=== PATIENT | male | born 1995 | race Two or more races ===

== ENCOUNTER 2020-06-28 15:05 | Emergency (ER) | payer BC ==
[~2020-06-28] VITALS: Ht 177.8 cm; Wt 109.0 kg
[2020-06-28] MEDS ORDERED: ORPHENADRINE CITRATE 60 MG/2 ML VIAL. IM ONE (15:30)
[2020-06-28] MEDS ORDERED: DEXAMETHASONE 4 MG TABLET PO ONE (15:30)
[2020-06-28] MEDS ORDERED: KETOROLAC 30 MG/ML VIAL. IM ONE (15:30)
--- NOTE | 2020-06-28 15:44 | PHYS DOC ---
Adult General Chief Complaint Chief Complaint: BACK PAIN OR INJURY HPI HPI Patient is a 25-year-old male who presents to the emergency department with complaints of feeling a pop in his right low back, upper gluteal area after performing a squat earlier this morning.. Patient states he was rising from the squatted position when he felt the pain. He denies any saddle anesthesia, loss of bowel/bladder control, or radiation of the pain into his lower extremities. Patient denies any numbness, tingling, or weakness of his extremities. He reports the pain increases with movement of his right leg. The pain becomes so unbearable that he is unable to stand. He currently rates his pain a 10 out of 10 on the pain scale he denies any alleviating factors, the pain is worse with movement and weightbearing. He denies radiation. (LUIS MANUEL CHUNG APRN) Review of Systems Review of Systems Constitutional: Denies fever or chills [] Respiratory: Denies cough or shortness of breath [] GI: Denies abdominal pain : Denies dysuria, hematuria, or incontinence Musculoskeletal: See HPI Integument: Denies rash or skin lesions [] Neurologic: Denies headache, focal weakness or sensory changes [] Complete systems were reviewed and found to be within normal limits, except as documented in this note. (LUIS MANUEL CHUNG APRN) Allergies Allergies Allergies Coded Allergies Type Severity Reaction Last Updated Verified amoxicillin Allergy Unknown 06/28/20 Yes (LUIS MANUEL CHUNG APRN) Physical Exam Physical Exam Constitutional: Well developed, well nourished, no acute distress, non-toxic appearance. [] HENT: Normocephalic, atraumatic, bilateral external ears normal, nose normal. [] Eyes: PERRLA, EOMI, conjunctiva normal, no discharge. [] Neck: Normal range of motion, no stridor. [] Cardiovascular:Heart rate regular rhythm Lungs & Thorax: Respirations even and unlabored, no retractions, no respiratory distress Abdomen: soft, no tenderness Back: No bony tenderness, no obvious deformity, no crepitus; lower lumbar right paraspinal tenderness to palpation without edema, erythema, or warmth; negative straight leg lift. Skin: Warm, dry, no erythema, no rash. [] Extremities: BLE: strength of bilateral lower extremities 5/5, sensation intact, No cyanosis, ROM intact, no edema. [] Neurologic: Alert and oriented X 3, no focal deficits noted. [] Psychologic: Affect normal, judgement normal, mood normal. [] (LUIS MANUEL CHUNG APRN) EKG EKG [] (LUIS MANUEL CHUNG APRN) Radiology/Procedures Radiology/Procedures PROCEDURE: CT LUMBAR SPINE WO CONTRAST CT LUMBAR SPINE WO CONTRAST History:Reason: RT LOW BACK PAIN, UNABLE TO BEAR WEIGHT / Spl. Instructions: / History: Technique: Noncontrast CT was performed of the lumbar spine. Multiplanar reconstructions were performed. Exposure: One or more of the following individualized dose reduction techniques were utilized for this examination: 1. Automated exposure control 2. Adjustment of the mA and/or kV according to patient size 3. Use of iterative reconstruction technique. Comparison: None Findings: Grade 1 anterolisthesis L5 on S1 due to bilateral L5 chronic spondylolysis. Normal vertebral body height. No acute fracture. T12-L1: No canal or neuroforaminal narrowing. L1-L2: Minimal disc bulge. No canal or neuroforaminal narrowing. L2-L3: Minimal disc bulge. No canal or neuroforaminal narrowing. L3-L4: Small disc bulge. No canal or neuroforaminal narrowing. L4-L5: Central disc protrusion. Subarticular recess narrowing, left greater than right. No canal narrowing. Mild facet arthropathy. No neuroforaminal narrowing. L5-S1: Anterolisthesis. Disc uncovering. Right foraminal disc extrusion. Severe right neuroforaminal narrowing with abutment of the exiting right L5 nerve root. Mild left neuroforaminal narrowing. No canal narrowing. Mild facet arthropathy. Appendicolith is noted. No dilatation or inflammatory changes of the appendix. Impression: 1. Grade 1 anterolisthesis L5 on S1 due to bilateral L5 spondylolysis. 2. L5-S1 right foraminal disc extrusion contributing to severe neural foraminal narrowing with abutment of the exiting right L5 nerve root. Correlate for radiculopathy. 3. Additional mild lumbar spondylosis. [] (LUIS MANUEL CHUNG APRN) Course & Med Decision Making Course & Med Decision Making Pertinent Labs and Imaging studies reviewed. (See chart for details) 1715- I spoke with Candy MANUFACTURERS SERVICE REPRESENTATIVE with Dr. Quintero. Per Candy the Ct has been reviewed by Dr. Quintero and if patient is unable to ambulate pt can be tx to [place] for pain control and evaluation by Dr. Quintero, if pt is able to ambulate may prescibe meds and have patient call office for follow up appointment next week. 1725- Pt is able to ambulate and bear weight at this time. He reports feeling much better after the medications, would like to go home and follow up in the office. Prescriptions written for naproxen, medrol dosepak, and norflex. [] (LUIS MANUEL CHUNG APRN) Dragon Disclaimer Dragon Disclaimer This electronic medical record was generated, in whole or in part, using a voice recognition dictation system. (LUIS MANUEL CHUNG APRN) Departure Departure: Impression: Primary Impression: L4-L5 disc bulge Additional Impression: Bulging discs Disposition: 01 DC HOME SELF CARE/HOMELESS Condition: STABLE Referrals: PCP,NO (PCP) Patient Instructions: Back Pain, Adult, [id number] Additional Instructions: Fill the prescription(s) and use as directed. Apply heat or ice for to sore areas as needed for comfort. Activity as tolerated. Call Dr. Hussein's office tomorrow to schedule a follow up. The office phone number [phone]. Return to the ER if symptoms worsen. Scripts Methylprednisolone (MEDROL) 4 Mg Tab.ds.pk 1 PKG PO UD for inflammation for 6 Days, #1 PKG 0 Refills Prov: LUIS MANUEL CHUNG APRN 06/28/20 Orphenadrine Citrate (ORPHENADRINE CITRATE) 100 Mg Tablet.er 1 TAB PO BID PRN for PAIN for 10 Days, #20 TAB 0 Refills Prov: LUIS MANUEL CHUNG APRN 06/28/20 Naproxen (NAPROXEN) 500 Mg Tablet. 1 TAB PO BID for pain, #60 TAB 0 Refills Prov: LUIS MANUEL CHUNG APRN 06/28/20 Attending Signature Attending Signature I have reviewed the PA/MANUFACTURERS SERVICE REPRESENTATIVE's note and plan of care. I was available for c onsultation as needed during the patient's visit in the emergency department. I agree with the clinical impression, plan, and disposition. (MAREN ARCE DO) Problem Qualifiers LUIS MANUEL CHUNG APRN Jun 28, 2020 15:44 MAREN ARCE DO Jun 29, 2020 00:02
--- NOTE | 2020-06-28 16:45 | RAD ---
CT LUMBAR SPINE WO CONTRAST History:Reason: RT LOW BACK PAIN, UNABLE TO BEAR WEIGHT / Spl. Instructions: / History: Technique: Noncontrast CT was performed of the lumbar spine. Multiplanar reconstructions were performed. Exposure: One or more of the following individualized dose reduction techniques were utilized for this examination: 1. Automated exposure control 2. Adjustment of the mA and/or kV according to patient size 3. Use of iterative reconstruction technique. Comparison: None Findings: Grade 1 anterolisthesis L5 on S1 due to bilateral L5 chronic spondylolysis. Normal vertebral body height. No acute fracture. T12-L1: No canal or neuroforaminal narrowing. L1-L2: Minimal disc bulge. No canal or neuroforaminal narrowing. L2-L3: Minimal disc bulge. No canal or neuroforaminal narrowing. L3-L4: Small disc bulge. No canal or neuroforaminal narrowing. L4-L5: Central disc protrusion. Subarticular recess narrowing, left greater than right. No canal narrowing. Mild facet arthropathy. No neuroforaminal narrowing. L5-S1: Anterolisthesis. Disc uncovering. Right foraminal disc extrusion. Severe right neuroforaminal narrowing with abutment of the exiting right L5 nerve root. Mild left neuroforaminal narrowing. No canal narrowing. Mild facet arthropathy. Appendicolith is noted. No dilatation or inflammatory changes of the appendix. Impression: 1. Grade 1 anterolisthesis L5 on S1 due to bilateral L5 spondylolysis. 2. L5-S1 right foraminal disc extrusion contributing to severe neural foraminal narrowing with abutment of the exiting right L5 nerve root. Correlate for radiculopathy. 3. Additional mild lumbar spondylosis. Electronically signed by: Kishore Ceballos DO (06/28/2020 4:41 PM) [facility]
[2020-06-28 17:20] VITALS: BP 134/53
[2020-06-28] MEDS ORDERED: NAPR500T8 PO (17:35)
[2020-06-28] MEDS ORDERED: METH4TAB2 PO (17:35)
[2020-06-28] MEDS ORDERED: ORPH-16 PO (17:35)
== END 2020-06-28 17:44 | disposition home or self-care (01) ==
LOC: ER 15:05
DX: M51.86 Other intervertebral disc disorders, lumbar region (principal); Z88.1 Allergy status to other antibiotic agents
CPT/HCPCS: 72131; 99284-25

== ENCOUNTER 2021-06-25 14:13 | Emergency (ER) | payer BC ==
[~2021-06-25] VITALS: Ht 170.2 cm; Wt 102.1 kg
[~2021-06-25 14:13] MED LIST: METH4TAB2 PO; NAPR500T8 PO; ORPH-16 PO
[2021-06-25 15:10] VITALS: BP 116/70
--- NOTE | 2021-06-25 15:17 | PHYS DOC ---
Past History Past Medical History: No Pertinent History (LEAH ALBARRAN APRN) Past Surgical History: No Surgical History (LEAH ALBARRAN APRN) Alcohol Use: None (LEAH ALBARRAN APRN) General Adult EDM: Chief Complaint: CHEST PAIN HPI: HPI: Patient is a 26-year-old male who presents to the emergency department for chest pain. Patient reports that he has generalized chest pain that has been intermittent for 2 weeks. He rates it 5 out of 10. It does not radiate. It is better with rest, worse with movement and after working out. He has been taking Aleve at home without any relief. Patient reports that he has been seen twice by the urgent care for this and diagnosed with muscle strain. Patient also reports shortness of breath, nausea with his symptoms. He denies vomiting, dizziness, abdominal pain. Patient has no medical history, he states that he does have anxiety but takes no medications for it. He has no family history of heart disease. (LEAH ALBARRAN APRN) Review of Systems: Review of Systems: 14 body systems of the review of systems have been reviewed. See HPI for pertinent positive and negative responses, otherwise all other systems are negative, nonpertinent or noncontributory (LEAH ALBARRAN APRN) Allergies: Allergies: Allergies Coded Allergies Type Severity Reaction Last Updated Verified amoxicillin Allergy Unknown 06/28/20 Yes (LEAH ALBARRAN APRN) Physical Exam: PE: Constitutional: Well developed, well nourished, no acute distress, non-toxic appearance. [] HENT: Normocephalic, atraumatic, bilateral external ears normal, oropharynx moist, no oral exudates, nose normal. [] Eyes: PERRL, EOMI, conjunctiva normal, no discharge. [] Neck: Normal range of motion, no stridor Cardiovascular:Heart rate regular rhythm, no murmur, chest pain is reproducible [] Lungs & Thorax: Bilateral breath sounds clear to auscultation [] Abdomen: Bowel sounds normal, soft, no tenderness, no masses, no pulsatile masses. [] Skin: Warm, dry, no erythema, no rash. [] Back: Normal range of motion Extremities: No tenderness, no cyanosis, no clubbing, ROM intact, no edema. [] Neurologic: Alert and oriented X 3, normal motor function, normal sensory function, no focal deficits noted. [] Psychologic: Affect normal, judgement normal, mood normal. [] (LEAH ALBARRAN APRN) Current Patient Data: Labs: Laboratory Tests Test 06/25/21 15:25 06/25/21 15:32 Urine Collection Type Unknown Urine Color Yellow Urine Clarity Clear Urine pH 7.5 Urine Specific [place] 1.020 Urine Protein Neg Urine Glucose (UA) Neg mg/dL Urine Ketones (Stick) Neg mg/dL Urine Blood Neg Urine Nitrite Neg Urine Bilirubin Neg Urine Urobilinogen Dipstick 0.2 mg/dL Urine Leukocyte Esterase Neg Urine RBC 0 /HPF Urine WBC 0 /HPF Urine Bacteria 0 /HPF Sodium Level 137 mmol/L Potassium Level 3.8 mmol/L Chloride Level 103 mmol/L Carbon Dioxide Level 27 mmol/L Anion Gap 7 Blood Urea Nitrogen 9 mg/dL Creatinine 1.1 mg/dL Estimated GFR (Cockcroft-Gault) 82.2 BUN/Creatinine Ratio 8 Glucose Level 97 mg/dL Calcium Level 9.4 mg/dL Total Bilirubin 0.5 mg/dL Aspartate Amino Transf (AST/SGOT) 20 U/L Alanine Aminotransferase (ALT/SGPT) 38 U/L Alkaline Phosphatase 92 U/L Troponin I Quantitative < 0.017 ng/mL Total Protein 7.7 g/dL Albumin 4.6 g/dL Albumin/Globulin Ratio 1.5 White Blood Count 10.8 x10^3/uL Red Blood Count 5.40 x10^6/uL Hemoglobin 15.5 g/dL Hematocrit 46.0 % Mean Corpuscular Volume 85 fL Mean Corpuscular Hemoglobin 29 pg Mean Corpuscular Hemoglobin Concent 34 g/dL Red Cell Distribution Width 13.8 % Platelet Count 229 x10^3/uL Neutrophils (%) (Auto) 84 % Lymphocytes (%) (Auto) 10 % Monocytes (%) (Auto) 6 % Eosinophils (%) (Auto) 1 % Basophils (%) (Auto) 1 % Neutrophils # (Auto) 9.0 x10^3uL Lymphocytes # (Auto) 1.0 x10^3/uL Monocytes # (Auto) 0.6 x10^3/uL Eosinophils # (Auto) 0.1 x10^3/uL Basophils # (Auto) 0.1 x10^3/uL Current Medications Medications (Trade) Dose Ordered Sig/Tamar Route PRN Reason Start Time Stop Time Status Last Admin Dose Admin Sodium Chloride 1,000 ml @ 1,000 mls/hr Q1H IV 06/25/21 15:30 06/25/21 16:29 DC 06/25/21 15:30 Fentanyl Citrate (Fentanyl 2ml Vial) 50 mcg 1X ONCE IVP 06/25/21 15:30 06/25/21 15:31 DC Ondansetron HCl (Zofran) 4 mg 1X ONCE IVP 06/25/21 15:30 06/25/21 15:31 DC (LEAH ALBARRAN APRN) EKG: EKG: EKG performed by ER staff at 1416 shows sinus rhythm with a rate of 86, QTC of 422, no STEMI read by Dr. Claros at 1422 [] Repeat EKG performed at 1613 by ER staff shows sinus rhythm with a rate of 63, QTC of 392., No STEMI read by Dr. Claros at 1620 (LEAH ALBARRAN APRN) Radiology/Procedures: Radiology/Procedures: []PROCEDURE: PORTABLE CHEST 1V XR CHEST 1V History: Chest pain Comparison: None. Technique: Portable AP radiographs of the chest. Findings: Mild hypoinflation, improved on repeat exposure. No focal airspace consolidation, pleural effusion or pneumothorax. Cardiac mediastinal silhouette and pulmonary vasculature are within normal limits. Osseous structures and soft tissues are unremarkable. Impression: 1. No acute cardiopulmonary process. Electronically signed by: Supa Kam MD (06/25/2021 3:32 PM) [id number] DICTATED AND SIGNED BY: SUPA KAM MD DATE: 06/25/21 1531 CC: EMERGENCY,DEPARTMENT; LEAH ALBARRAN APRN; PCP,NO ~MTH0 0 (LEAH ALBARRAN APRN) Heart Score: C/O Chest Pain: Yes HEART Score for Chest Pain: HEART Score for Chest Pain Response (Comments) Value History Slighlty/Non-Suspicious 0 ECG Normal 0 Age < 45 0 Risk Factors No Risk Factors 0 Troponin < Normal Limit 0 Total 0 Risk Factors: Risk Factors: DM, Current or recent (<one month) smoker, HTN, HLP, family history of CAD, obesity. Risk Scores: Score 0 - 3: 2.5% MACE over next 6 weeks - Discharge Home Score 4 - 6: 20.3% MACE over next 6 weeks - Admit for Clinical Observation Score 7 - 10: 72.7% MACE over next 6 weeks - Early Invasive Strategies (LEAH ALBARRAN APRN) Course & Med Decision Making: Course & Med Decision Making Pertinent Labs and Imaging studies reviewed. (See chart for details) [] Patient is a 26-year-old male being seen in the emergency department for generalized chest pain that is intermittent for 2 weeks. It is worse after working out and movement, relieved by rest. Work-up in the ER consisted of blood work, EKG, chest x-ray. Patient states that he does have pain in his chest that feels like it is between his ribs and it does help after he massages those areas. Patient states that he notices his chest pain after he is working out. Work-up in the ER is unremarkable. Patient's heart score is 0. Patient advised to take Tylenol and ibuprofen for his pain and decrease physical activity as that may be exacerbating his chest wall pain. Also advised to apply heat, perform stretches. Discharged with muscle relaxer, given instructions for use including caution while taking as it causes sedation and not to take when he needs to be alert or with alcohol.He was advised to follow-up with primary care provider. I discussed with patient all findings and diagnostic testing as well as the need to follow-up with PCP for further evaluation and treatment or return to the ER if any new or worsening symptoms. Strict return precautions were also discussed at length. Patient voiced understanding and agreement with the plan. Patient is hemodynamically stable at the time of disposition. (LEAH ALBARRAN APRN) Course & Med Decision Making I staffed this patient with the CE. I did interpret the EKG, and different from above, did note T wave inversion in lead III. The EKG was otherwise without acute ischemic changes. This would make his HEART score = 1, which continues to be low risk. His work-up was overall unremarkable otherwise. Given the description of pain seems most consistent with musculoskeletal chest pain. (ALISSA CLAROS MD) Dragon Disclaimer: Dragon Disclaimer: This electronic medical record was generated, in whole or in part, using a voice recognition dictation system. (LEAH ALBARRAN APRN) Departure Departure: Impression: Primary Impression: Chest wall pain Disposition: HOME / SELF CARE / HOMELESS Condition: GOOD Referrals: PCP,NO (PCP) Patient Instructions: Costochondritis Additional Instructions: You were seen in the emergency department for chest pain. Your physical exam was reassuring and your lab work was unremarkable. At this time it does not appear that you are having acute coronary syndrome. It is likely that your chest wall pain is due to something called costochondritis. To help with this, you can take Tylenol or ibuprofen. Make sure that you are stretching before exercise is and you can also apply heat to the areas a few times a day. You are being discharged home with a muscle relaxer that you can take for your pain. This medication may cause sedation so do not take when you need to be alert and do not take with any alcohol. Follow-up with your primary care provider tomorrow regarding your ER visit. Please return to the emergency department if you develop chest pain, shortness of breath, intractable nausea or vomiting, high fevers refractory to treatment, lightheadedness or syncope. EMERGENCY DEPARTMENT GENERAL DISCHARGE INSTRUCTIONS Thank you for coming to [facility] (ED) today and trusting us with you care. We trust that you had a positivie experience in our Emergency Department. If you wish to speak to the department management, you may call the director at . YOUR FOLLOW UP INSTRUCTIONS ARE FOLLOWS: 1. Do you have a private Doctor? If you do not have a private doctor, please ask for a resource list of physicians or clinics that may be able to assist you with follow up care. 2. The Emergency Physician has interpreted your x-rays. The X-Ray specialist will also review them. If there is a change in the findings, you will be notified in 48 hours when at all possible. 3. A lab test or culture has been done, your results will be reviewed and you will be notified if you need a change in treatment. ADDITIONAL INSTRUCTIONS AND INFORMATION: 1. Your care today has been supervised by a physician who is specially trained in emergency care. Many problems require more than one evaluation for a complete diagnosis and treatment. We recommend that you schedule your follow up appointment as recommended to ensure complete treatment of you illness or injury. If you are unable to obtain follow up care and continue to have a problem, or if your condition worsens, we recommend that you return to the ED. 2. We are not able to safely determine your condition over the phone nor are we able to give sound medical advice over the phone. For these safety reasons, if you call for medical advice we will ask you to come to the ED for further evaluation. 3. If you have any questions regarding these discharge instructions please call the ED at [phone]. SAFETY INFORMATION: In the interest of safety, wellness, and injury prevention; we encourage you to wear your sealbelt, if you smoke; quite smoking, and we encourage family to use a protective helmet for bicycling and other sporting events that present an increased risk for head injury. IF YOUR SYMPTOMS WORSEN OR NEW SYMPTOMS DEVELOP, OR YOU HAVE CONCERNS ABOUT YOUR CONDITION; OR IF YOUR CONDITION WORSENS WHILE YOU ARE WAITING FOR YOUR FOLLOW UP APPOINTMENT; EITHER CONTACT YOUR PRIMARY CARE DOCTOR, THE PHYSICIAN WHOSE NAME AND NUMBER YOU WERE GIVEN, OR RETURN TO THE ED IMMEDIATELY. Scripts Cyclobenzaprine Hcl (CYCLOBENZAPRINE HCL) 5 Mg Tablet 1 TAB PO TID for muscle pain for 5 Days, #15 TAB 0 Refills Prov: LEAH ALBARRAN APRN 06/25/21 LEAH ALBARRAN APRN Jun 25, 2021 15:17 ALISSA CLAROS MD Jun 25, 2021 17:06
[2021-06-25] MEDS ORDERED: IV NORMAL SALINE 1,000ML 1,000 ML IV SCH (15:30)
[2021-06-25] MEDS ORDERED: ONDANSETRON PF 4 MG/2 ML VIAL. IVP ONE (15:30)
--- NOTE | 2021-06-25 15:34 | RAD ---
XR CHEST 1V History: Chest pain Comparison: None. Technique: Portable AP radiographs of the chest. Findings: Mild hypoinflation, improved on repeat exposure. No focal airspace consolidation, pleural effusion or pneumothorax. Cardiac mediastinal silhouette and pulmonary vasculature are within normal limits. Oss eous structures and soft tissues are unremarkable. Impression: 1. No acute cardiopulmonary process. Electronically signed by: Supa Lam MD (06/25/2021 3:32 PM) [id number]
[2021-06-25 15:51] LABS: BASO # 0.1 x10^3/uL (0.0-0.2); BASO % 1 % (0-3); EOS # 0.1 x10^3/uL (0.0-0.7); EOS % 1 % (0-3); HEMOGLOBIN 15.5 g/dL (13.0-17.5); LYMPH % 10 % (24-48); MEAN CORPUSCULAR HEMOGLOBIN 29 pg (25-35); MEAN CORPUSCULAR HGB CONC 34 g/dL (31-37); MEAN CORPUSCULAR VOLUME 85 fL (79-100); MONO # 0.6 x10^3/uL (0.0-1.1); MONO % 6 % (0-9); NEUT % 84 % (31-73); PLATELET COUNT 229 x10^3/uL (140-400); RED CELL DISTRIBUTION WIDTH 13.8 % (11.5-14.5); WHITE BLOOD COUNT 10.8 x10^3/uL (4.0-11.0)
[2021-06-25 15:59] LABS: CALCIUM 9.4 mg/dL (8.5-10.1); CREATININE 1.1 mg/dL (0.7-1.3); GFR 82.2; POTASSIUM 3.8 mmol/L (3.5-5.1)
[2021-06-25 16:05] LABS: ALBUMIN 4.6 g/dL (3.4-5.0); ALBUMIN/GLOBULIN RATIO 1.5 (1.0-1.7); TOTAL BILIRUBIN 0.5 mg/dL (0.2-1.0); TOTAL PROTEIN 7.7 g/dL (6.4-8.2)
--- NOTE | 2021-06-25 16:05 | EKG ---
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
[2021-06-25 16:27] LABS: BACTERIA,URINE 0 /HPF (0-FEW); BILIRUBIN,URINE NEG (NEG); CLARITY,URINE CLEAR; COLOR,URINE YELLOW; GLUCOSE,URINE NEG (NEG); NITRITE,URINE NEG (NEG); RBC,URINE 0 /HPF (0-2); UROBILINOGEN,URINE 0.2 mg/dL (0.2 mg/dL); WBC,URINE 0 /HPF (0-4)
[2021-06-25] MEDS ORDERED: CYCL5TAB PO (16:41)
--- NOTE | 2021-06-25 17:53 | EKG ---
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
== END 2021-06-25 16:59 | disposition home or self-care (01) ==
LOC: ER 14:13
DX: R07.89 Other chest pain (principal); R06.02 Shortness of breath; R11.0 Nausea; Z88.1 Allergy status to other antibiotic agents
CPT/HCPCS: 36415; 71045; 80053; 81001; 84484; 85025; 93005; 96360; 99285; J7030